=== PATIENT | female | born 1965 | race Caucasian/White ===

== ENCOUNTER → 2017-05-18 09:06 | Outpatient (CLI) | payer OTHER, SELFPAY ==
--- NOTE | 2017-05-18 09:09 | ECHOD_ITS ---
Reason For Study: Cardiomyopathy Procedure This was a 2D Doppler, Color Flow transthoracic echocardiogram. Techncially difficult study, multiple positions and breathing techniques were used. Exam performed in department. Left Ventricle Normal LV size. Left ventricular systolic function is lower limits of normal. The estimated ejection fraction is 53 %. No regional wall motion abnormalities noted. Right Ventricle Normal RV size. Normal systolic function. Atria Normal left atrium. Normal right atrium. Mitral Valve Normal mitral valve. Tricuspid Valve Normal tricuspid valve. Mild (1+) tricuspid valve insufficiency. Pulmonary artery systolic pressure is 26 mmHg. Aortic Valve Normal aortic valve. Trisinus/trileaflet aortic valve. Pulmonic Valve Normal pulmonic valve. Great Vessels Normal aortic root. The pulmonary artery is normal size. Normal inferior vena cava. Pericardium/Pleural No pericardial effusion. MMode/2D Measurements & Calculations LVIDd: 4.4 cm IVSd: 0.54 cm Ao root diam: 2.9 cm LVIDs: 2.9 cm LVPWd: 0.89 cm LA dimension: 2.6 cm FS: 33.2 % Time Measurements MV dec time: 0.42 sec Doppler Measurements & Calculations MV E max lesley: 57.6 cm/sec MV V2 max: 85.8 cm/sec MV P1/2t max lesley: 83.7 cm/sec MV A max lesley: 46.9 cm/sec MV max P.9 mmHg MV P1/2t: 67.1 msec MV E/A: 1.2 MV V2 mean: 44.4 cm/sec MV dec slope: 365.1 cm/sec2 MV mean P.92 mmHg MVA(P1/2t): 3.3 cm2 MV V2 VTI: 23.9 cm Ao V2 max: 103.0 cm/sec LV V1 max: 91.5 cm/sec PA V2 max: 76.0 cm/sec Ao max P.2 mmHg LV V1 max P.3 mmHg Ao V2 mean: 70.2 cm/sec LV V1 mean P.5 mmHg Ao mean P.2 mmHg LV V1 mean: 57.6 cm/sec Ao V2 VTI: 20.2 cm LV V1 VTI: 17.4 cm TR max lesley: 235.4 cm/sec TR max P.2 mmHg Interpretation Summary Normal LV size. Left ventricular systolic function is lower limits of normal. The estimated ejection fraction is 53 %. Structurally normal valves. Ordering Physician: Corry Arias Referring Physician: Corry Arias Performed By: Abiodun Moreno RCS
== END ==
PROVIDERS: Family Provider Nurse Practitioner; PCP Nurse Practitioner; Visit Provider Nurse Practitioner
DX: I42.8 Other cardiomyopathies (principal)
CPT/HCPCS: 93225; 93226; 93306

== ENCOUNTER → 2017-05-19 13:56 | Outpatient (CLI) | payer OTHER, SELFPAY ==
--- NOTE | 2017-05-20 05:56 | LEAS ---
Arterial Study - Arterial Study Arterial Study: Bilateral lower extremity ankle-brachial indices examination Patient complaint of left great toe pain and coldness Right lower extremity Right PT and DP ankle-brachial indices at rest are 1.13 and 1.14 with triphasic Doppler waveforms at both sites. Left lower extremity Left PT and DP ankle-brachial index at rest are 1.07 and 1.08 with triphasic Doppler waveforms Impression Normal bilateral lower extremity ankle-brachial indices Leonardo Ramos M.D., F.A.C.S.
== END ==
PROVIDERS: Family Provider Nurse Practitioner; PCP Nurse Practitioner; Visit Provider Internal Medicine Cardiovascular Disease
DX: I73.9 Peripheral vascular disease, unspecified (principal); M79.675 Pain in left toe(s)
CPT/HCPCS: 93922

== ENCOUNTER → 2017-07-21 15:52 | Outpatient (CLI) | payer OTHER, SELFPAY ==
--- NOTE | 2017-07-21 15:57 | BD_ITS ---
STUDY: DUAL ENERGY X-RAY ABSORPTIOMETRY / DXA REASON FOR EXAM: Female, 52 years old. The patient is postmenopausal. Loss of height. TECHNIQUE: Bone Mineral Density (BMD) measurements of lumbar spine and bilateral hips were obtained. COMPARISON: None. FINDINGS: Lumbar Spine (L1-L4): g/cm2 (1.349) / T-score (1.2) / Z-score (1.8) Findings are suggestive of normal bone density with a low fracture risk. Left Femur Total: g/cm2 (0.832) / T-score (-1.4) / Z-score (-0.9) Left Femoral Neck: g/cm2 (0.943) / T-score (-0.7) / Z-score (0.2) Right Femur Total: g/cm2 (0.886) / T-score (-1.0) / Z-score (0.4) Right Femoral Neck: g/cm2 (1.014) / T-score (0.2) / Z-score (0.7) BD/Dexa Bone Density Study IMPRESSION: The patient is considered osteopenic as outlined below according to World Claudio Organization (WHO) criteria with a moderate fracture risk. Reference Information: The T-score is the number of standard deviations above or below the standard which is normal for young adults at their peak bone mineral density. The World Health Organization (WHO) interprets the T-scores as follows: Above -1 Normal bone density Between -1 and -2.5 Osteopenia Equal to / or below -2.5 Osteoporosis As a practical clinical guideline, osteopenia may be graded as follows: Mild -1 through -1.5 Moderate -1.6 through -2.0 Severe -2.1 through -2.4 The Z-score is the number of standard deviations above or below age-matched controls. A Z-score of less than -1.5 would be considered abnormal. References: 1. NIH Osteoporosis and Related Bone Diseases http://www.osteo.org 2. International Society for Clinical Densitometry http://www.iscd.org 3. National Osteoporosis Foundation http://www.nof.org Electronically Signed: Robert Hugo MD at 15:50 EDT Tel [phone], Service support ,
--- NOTE | 2017-07-21 16:20 | RAD_ITS ---
STUDY: X-RAY - PELVIS AND BILATERAL HIPS REASON FOR EXAM: Female, 52 years old. Bilateral hip pain for a long time, no known injury TECHNIQUE: Radiological exam, hip, bilateral, with pelvis when performed; minimum of 5 views COMPARISON: None. FINDINGS: There is a non-specific bowel gas pattern. Normal visualized soft tissue structures. Normal bilateral iliac wings, sacroiliac joints and visualized sacrum. Benign bone sclerosis of the bilateral iliacs. Normal bilateral superior and inferior pubic rami. Normal pubic symphysis. Normal bilateral ischial tuberosities. Normal visualized right femoral head. Normal right acetabulum. Normal right hip joint. Normal visualized left femoral head. Normal left acetabulum. Normal left hip joint. RAD/Hips B/L min 2 views w/ Pelvis IMPRESSION: Normal x-ray examination of the pelvis and bilateral hips. Electronically Signed: Kat Bryant MD at 7:48 EDT , Service support ,
== END ==
PROVIDERS: Family Provider Nurse Practitioner; PCP Nurse Practitioner; Visit Provider Nurse Practitioner
DX: Z78.0 Asymptomatic menopausal state (principal); M85.80 Other specified disorders of bone density and structure, unspecified site; M25.552 Pain in left hip; M25.551 Pain in right hip
CPT/HCPCS: 73521; 77080

== ENCOUNTER → 2017-11-16 16:18 | Outpatient (CLI) | payer OTHER, SELFPAY ==
--- NOTE | 2017-11-16 16:26 | BI_ITS ---
MAMMOGRAPHY - BILATERAL SCREENING REASON FOR EXAM: Female, 52 years old. Routine annual screening examination. PERTINENT HISTORY: Mother with breast cancer. Aunt with breast cancer. TECHNIQUE: Digital bilateral breast rosemary (3D mammographic acquisition) in the CC and MLO projections. 2-D mediolateral oblique (MLO) and craniocaudad (CC) views of both breasts were obtained. CAD: Full Field Digital Mammography with Computer Added Detection was performed. COMPARISON: Comparison is made with prior examination dated August 20, 2016 and March 01, 2014. FINDINGS: Breast Composition: The breasts are heterogeneously dense, which may obscure small masses. There are no dominant masses or suspicious calcifications. No other significant abnormalities are identified. There has been no significant change since the prior study. BI/SCREENING MAMM (CAD), BILAT IMPRESSION: Stable bilateral screening mammogram. Yearly follow-up mammogram recommended. (A) ASSESSMENT CATEGORY: BIRADS Category 1: Negative. A letter regarding these results will be sent to the patient by the facility within 30 days. Approximately 10% of breast cancers are not detected by mammography. A normal mammogram should not delay biopsy of a clinically suspicious abnormality. [id number] Electronically Signed: Robert Hugo MD at 9:24 EDT Tel [phone], Service support ,
== END ==
PROVIDERS: Family Provider Nurse Practitioner; PCP Nurse Practitioner; Visit Provider Obstetrics & Gynecology
DX: Z12.31 Encounter for screening mammogram for malignant neoplasm of breast (principal)
CPT/HCPCS: 77063; 77067

== ENCOUNTER → 2020-07-02 16:32 | Outpatient (CLI) | payer OTHER, SELFPAY ==
--- NOTE | 2020-07-02 16:35 | RAD_ITS ---
STUDY: X-RAY - LEFT SHOULDER REASON FOR EXAM: Female, 54 years old. Atraumatic left shoulder pain. TECHNIQUE: 2 view(s) of the shoulder on 4 images. COMPARISON: None. FINDINGS: Mild arthrosis of the glenohumeral joint. Normal acromioclavicular joint. Normal acromion. Normal humeral head and visualized proximal humerus. The soft tissue structures are unremarkable. Normal visualized pulmonary apex. RAD/Shoulder min 2 Views IMPRESSION: Mild arthrosis of the glenohumeral joint. No other abnormality. Electronically Signed: Armando Samuels MD at 12:35 EDT , Service support ,
== END ==
PROVIDERS: PCP Nurse Practitioner; Referring Provider Nurse Practitioner; Visit Provider Nurse Practitioner
DX: M25.512 Pain in left shoulder (principal)
CPT/HCPCS: 73030

== ENCOUNTER 2020-07-03 13:04 | Outpatient (RCR) | payer OTHER, SELFPAY ==
[2020-07-03] MEDS: COVID-19 VACC, MRNA(PFIZER)/PF 30 MCG/0.3 ML SYRINGE IM (15:54)
[2020-07-24] MEDS: COVID-19 VACC, MRNA(PFIZER)/PF 30 MCG/0.3 ML SYRINGE IM (15:31)
== END 2020-09-25 23:59 ==
LOC: IMMUN 13:04
PROVIDERS: PCP Nurse Practitioner; Visit Provider Family Medicine
DX: Z23 Encounter for immunization (principal)
CPT/HCPCS: 0001A; 0002A; 91300

== ENCOUNTER 2020-07-19 06:57 | Outpatient (RCR) | payer OTHER, SELFPAY ==
[2020-07-17 10:46] VITALS: BMI 19.5
--- NOTE | 2020-07-19 08:02 | HP.PTEVAL_ITS ---
Patient's Visit Information FISH MAGDALENO is a 55 year old F referred to Physical Therapy by Dr. Darlene Reis DO with a diagnosis of L shoulder bursitis. Date of Evaluation: 07/19/20 Physical Therapist: Alirio Gambino DPT - Visit Plan Frequency: 1x/Week Duration: 4 Weeks Plan: Start with progressing flexion ROM with shoulder pass throughs. Progress shoulder ER and scapular strengthening. May use modalities if needed. Pt. to take her HEP today and work on it for a few weeks. Pt. to follow up with PT in a few weeks or sooner if needed. - Subjective Pt. is here today for her initial evaluation with diagnosis of L shoulder burs itis. Pain has been going on for about a month or so. No mech of injury. Pain with sleeping, reaching behind her back. Decreases pain: naproxen gunjan reduced and icing. No N/T. - Pain L shoulder Pain Intensity (Out of 10): 1 Pain Intensity Range: 0, 5 - Objective POSTURE: Pt. has slight forward head, normal shoulder heights. PALPATION: tender at lateral subacromial space. no pain with deltoid. NEURO: Pt. has normal sensation and normal DTR of BUEs. ROM: Pt. has pretty good ROM of L shou lder. Full flexion (slight pain at end range), full abduction (slight pain at end range), functional ER normal (mild increase NW), functional IR loss L5 increase NW. Pt. has slight pain with end range over pressures in all directions. MMT: Pt. overall has pretty good shoulder strength. L shoulder- flexion 5/5, abd 5-/5 mild increase NW, ext 5/5, ER 5-/5, IR 5/5. - Special Tests L Shoulder Drop Sign - IS Test: Negative L Shoulder Empty Can - SS: Negative L Shoulder Belly Press - SupScap: Negative L Shoulder Neer - Impingement: Positive L Shoulder Young Jerardo - Impingement: Positive L Shoulder Biceps Load Test - Labrum: Negative L Shoulder Yeargasons - SLAP: Negative L Shoulder Speeds Test - Labrum/Biceps: Negative L Shoulder Shrug Sign - OA/Adhesive Capsulitis: Negative - Goals Goal 1:: LTG: Pt. to be I with HEP. Goal Time Frame: 4-6 Weeks Goal 2:: STG: Pt. to sleep throughout the night without increase in symptoms. Goal Time Frame: 2-4 Weeks Goal 3:: LTG: Pt. to have no pain with all functional mobilities and recreational activities. Goal Time Frame: 4-6 Weeks Goal 4:: LTG: Pt. to have increased shoulder strength to 5/5 throughout. Goal Time Frame: 4-6 Weeks - Rehabilitation Potential Physical Therapy Diagnosis: Pt. has signs and symptoms consistent with L shoulder bursitis. Pt. has overall pretty good ROM, except with functional IR. She has pain with end ranges of motions. No signs of tearing noted. Pt. would benefit from PT to restore full motion, work on ER strenthening and scapular strengthening to decrease forward shoulder positioning. Modalities may be indicated to reduce initial inflammation. Rehabilitation Potential: Excellent - Anticipated Interventions Patient/Client Instruction: Educate patient on: Condition, Plan of Care, Risk Factors, Benefits of Fitness Program For the Purpose of:: To improve decision making, To facilitate caregiver knowledge, To improve self management, To prevent re-injury, To improve ability to perform tasks related to life management, To improve tolerance to ADL's Therapeutic Exercise to Include: Strength training, Power training, Postural training, Flexibilty training, Passive ROM, Active ROM, Scapular Strength/St abilization For the Purpose of:: To decrease pain, To increase ROM, To increase oxygenation perfusion, To improve muscle performance and motor function, To improve ability to perform ADL's Manual Therapy Techniques to Include: Mobilization For the Purpose of:: To decrease pain, To decrease swelling/inflammation, To increase ROM Cryotherapy (ice pack, ice massage): Yes Ultrasound (thermal/non thermal): Yes For the Purpose of:: To decrease pain, To decrease swelling/inflammation, To increase ROM Thank you for the opportunity to evaluate your patient. For Medicare and Medicare HMO plans, please review the plan of care and approve it. It will need to be FAXED BACK to us at [phone] for Medicare purposes. For Medicare only, by signing this I certify the plan of care. Please let me know if there are questions or concerns regarding this plan of care. Physician Signature: Date:
== END 2020-07-19 19:00 | disposition home or self-care (01) ==
LOC: PT 06:57
PROVIDERS: PCP Nurse Practitioner; Referring Provider Orthopaedic Surgery; Visit Provider Orthopaedic Surgery
DX: M75.52 Bursitis of left shoulder (principal)
CPT/HCPCS: 97110; 97161

== ENCOUNTER → 2020-09-11 07:35 | Outpatient (CLI) | payer OTHER, SELFPAY ==
[2020-08-27 08:27] VITALS: BMI 19.5
--- NOTE | 2020-09-11 07:38 | BI_ITS ---
MAMMOGRAPHY - BILATERAL SCREENING REASON FOR EXAM: Female, 55 years old. Routine annual screening examination. PERTINENT HISTORY: Mother with breast cancer. Aunt with breast cancer. TECHNIQUE: Digital bilateral breast christina (3D mammographic acquisition) in the CC and MLO projections. 2-D mediolateral oblique (MLO) and craniocaudad (CC) views of both breasts were obtained. CAD: Full Field Digital Mammography with Computer Added Detection was performed. COMPARISON: Comparison is made with prior study dated 11/16/2017 and 08/20/2016. FINDINGS: Breast Composition: The breasts are heterogeneously dense, which may obscure small masses. There are no dominant masses or suspicious calcifications. No other significant abnormalities are identified. There has been no significant change since the prior study. BI/SCRN MAMM (CAD)W/CHRISTINA BILAT IMPRESSION: Stable bilateral screening mammogram. Yearly follow-up mammogram recommended. (A) ASSESSMENT CATEGORY: BIRADS Category 1: Negative. A letter regarding these results will be sent to the patient by the facility within 30 days. Approximately 10% of breast cancers are not detected by mammography. A normal mammogram should not delay biopsy of a clinically suspicious abnormality. [id number] Electronically Signed: Robert Hugo MD at 8:25 EDT , Service support ,
== END ==
PROVIDERS: PCP Nurse Practitioner; Referring Provider Obstetrics & Gynecology; Visit Provider Obstetrics & Gynecology
DX: Z12.31 Encounter for screening mammogram for malignant neoplasm of breast (principal)
CPT/HCPCS: 77063; 77067

== ENCOUNTER 2021-04-12 12:42 | Emergency (ER) | payer OTHER, SELFPAY ==
[2021-04-12 12:43] VITALS: BP 134/60; PULSE 72; RESP 18; TEMP 36.4; O2SAT 100; BMI 20.3
--- NOTE | 2021-04-12 13:15 | RAD_ITS ---
EXAM: XR RIGHT FOOT COMPLETE, 3 OR MORE VIEWS : 1965 CLINICAL INDICATION: trauma TECHNIQUE: Frontal, lateral and oblique views of the right foot. This report was created using [employer] report generation technology. COMPARISON: None. FINDINGS: BONES/JOINTS: Unremarkable. No acute fracture. No subluxation. Normal alignment. Preservation of the joint space. No sclerotic or destructive changes observed. SOFT TISSUES: Unremarkable. No soft tissue swelling or gas. No radiopaque foreign body. RAD/Foot min 3 Views IMPRESSION: No acute abnormality. at 1351 Reported and signed by: Bassam Leung MD Electronically Signed: Bassam Leung MD at 13:50 EST Tel , Service support ,
--- NOTE | 2021-04-12 13:25 | EDS_ITS ---
HPI History of Present Illness Chief Complaint: Lower Extremity Injury Informant: patient Narrative Narrative: Patient has pain in her right lateral foot area. She was hit by one of her dogs running. She felt a pop. She has pain in that area. It is worse with weightbearing and better with rest. No other injury or pain. [facility] Medical History Arthritis Home Medications cholecalciferol (vitamin D3) 25 mcg (1,000 unit) capsule 25 mcg PO DAILY 07/17/20 [History Last Taken Unknown] joint supplement PO 07/17/20 [History Last Taken Unknown] naproxen 500 mg tablet 500 mg PO BID 07/17/20 [History Last Taken Unknown] phytonadione (vitamin K1) 5 mg tablet 5 mg PO DAILY 07/17/20 [History Last Taken Unknown] meloxicam 15 mg tablet 15 mg PO DAILY #30 tab 03/27/21 [Rx Last Taken Unknown] Allergy/AdvReac Type Severity Reaction Status Date / Time Penicillins Allergy Hives, Verified 04/12/21 12:46 vomiting Family History Mother Heart disease Cancer Arthritis Father Diabetes Surgical History History of cervical discectomy History of tonsillectomy Social History household members: spouse housing: house Smoking Status: Never smoker alcohol intake: current alcohol intake frequency: a few times a week what type of physical activity do you participate in: walking, bicycling, yoga and additional details: Peloton bike, hike do you feel safe at home: Yes ROS ROS ED Musculoskeletal Musculoskeletal: Reports other Details: See history of present illness. ; Denies back pain or neck pain Integumentary Denies Abrasions or rash Neurologic Neurologic: Denies paresthesias or weakness Hematologic/Lymphatic Hematologic/Lymphatic: Denies easy bleeding or easy bruising EXAM Physical Exam Const Vital Signs: 04/12/21 12:43 Temperature 97.6 F L Temperature Source Temporal Pulse Rate 72 Respiratory Rate 18 Blood Pressure 134/60 H Blood Pressure Mean 84 Pulse Ox 100 Oxygen Delivery Method Room Air Positive well nourished and well developed General Appearance ED: well developed HEENT normocephalic and atraumatic Resp normal respiratory effort Extremity Extremity Narrative: There is a small contusion over the right lateral midfoot area. It is slightly above the typical fifth metatarsal area. There is minimal swelling. No deformity. No tenderness at the calcaneus, ankle or higher up in the leg all the way through the knee. Neuro moves all extremities and no sensory deficits noted Sensorium / Orientation: alert Skin Skin Narrative: Mild contusion as above. Rashes: no rashes MDM MDM MDM Narrative Medical decision making narrative: Three-view x-ray of the foot looked at by me and read by radiology shows no sign of acute fracture. Patient will use ice rest. If it still hurting in 1 to 2 weeks that should be carol-rayed. She has crutches already. Radiography Diagnostic Testing: Clinical Impression(s) from Imaging Studies Foot X-Ray 04/12/21 13:15 IMPRESSION: No acute abnormality. at 1351 Reported and signed by: Bassam Leung MD Electronically Signed: Bassam Leung MD at 13:50 EST Tel , Service support , Discharge Plan Triage Chief Complaint: Lower Extremity Injury ED Provider: Syed Cooper Dx/Rx/DC Orders Clinical Impression: Right foot strain Instructions: ED Foot Contusion, ED Foot Sprain Prescriptions: No Action naproxen 500 mg tablet 500 mg PO BID RF: 0 cholecalciferol (vitamin D3) 25 mcg (1,000 unit) capsule 25 mcg PO DAILY RF: 0 phytonadione (vitamin K1) 5 mg tablet 5 mg PO DAILY RF: 0 joint supplement PO RF: 0 meloxicam 15 mg tablet 15 mg PO DAILY Qty: 30 RF: 0 Primary Care Provider: Corry Arias NP Referrals: Corry Arias NP, MARKETING SUPPORT ASSISTANT-C [Primary Care Provider] - 1-2 Weeks Disposition Disposition: Home, Self Care
[2021-04-12 15:14] VITALS: PULSE 76; RESP 18; O2SAT 99
== END 2021-04-12 15:15 | disposition home or self-care (01) ==
PROVIDERS: Emergency Provider Emergency Medicine; PCP Nurse Practitioner
DX: S96.911A Strain of unspecified muscle and tendon at ankle and foot level, right foot, initial encounter (principal); S90.31XA Contusion of right foot, initial encounter; W54.1XXA Struck by dog, initial encounter; Y93.9 Activity, unspecified; Y92.9 Unspecified place or not applicable; Y99.9 Unspecified external cause status; M19.90 Unspecified osteoarthritis, unspecified site
CPT/HCPCS: 73630; 99282

== ENCOUNTER → 2021-10-23 | Outpatient (CLI) | payer BC, SELFPAY ==
--- NOTE | 2021-10-23 17:20 | MRI_ITS ---
STUDY: MRI LEFT SHOULDER REASON FOR EXAM: Left shoulder pain for one year, no specific injury. TECHNIQUE: Standardized fat and water weighted pulse sequences were obtained in all 3 orthogonal planes. COMPARISON: Radiographs 07/02/2020. FINDINGS: There is mild supraspinatus tendinosis and a small intermediate grade partial-thickness tear of the bursal surface of the distal supraspinatus tendon with mild delamination (T2 coronal image 8; proton-density coronal image 8). Normal infraspinatus tendon. Normal subscapularis tendon. Normal teres minor tendon. Normal supraspinatus muscle. Normal infraspinatus muscle. Normal subscapularis muscle. Normal teres minor muscle. Normal glenohumeral articulation. There is a very mild cystic change of the posterior aspect of the greater tuberosity. Normal biceps labral complex. Normal intracapsular long biceps tendon. Normal labrum. Normal capsulo- ligamentous complex. There is mild acromioclavicular arthrosis without substantial undersurface osteophytes (T2 sagittal image 12). There is a Type II morphology (curved), with a neutral orientation. There is a small volume of subacromial-subdeltoid bursal fluid (T2 coronal images 8-15). Normal visualized coracohumeral and coracoacromial ligaments. Normal deltoid muscle. Normal trapezius muscle. MRI/Upper Ext Joint Only(Routine) IMPRESSION: Small partial-thickness tear and mild tendinosis of the supraspinatus tendon. Mild acromioclavicular arthrosis. Mild subacromial-subdeltoid bursitis. Electronically Signed: Polo Boles MD at 9:52 EDT ,
== END | disposition home or self-care (01) ==
PROVIDERS: PCP Nurse Practitioner; Visit Provider Physician Assistant
DX: S46.812A Strain of other muscles, fascia and tendons at shoulder and upper arm level, left arm, initial encounter (principal); X58.XXXA Exposure to other specified factors, initial encounter; M19.012 Primary osteoarthritis, left shoulder; M75.52 Bursitis of left shoulder
CPT/HCPCS: 73221

== ENCOUNTER 2021-12-09 08:00 | Outpatient (RCR) | payer BC, SELFPAY ==
--- NOTE | 2021-11-13 08:02 | HP.PTEVAL ---
Patient's Visit Information FISH MAGDALENO is a 56 year old F referred to Physical Therapy by Dr. Brian Aviles DO with a diagnosis of Left Shoulder Bursitits. Date of Evaluation: 11/13/21 Physical Therapist: Nisreen Rich DPT - Visit Plan Frequency: 2-3x /Week Duration: 4 Weeks Plan: Focus on scapular strength/stabilization - Subjective Left Shoulder Pain- Patient reports that she has had 4 cortisone injections- a couple of years ago jammed falling on ice and that's the only thing she can remember. She also sleeps on that side and it bothers her in the morning. After the 3rd they did an MRI which showed bursitis, mild OA, possible labral shredding and a possible RTC tear. suggested PT- she was evaluated and given a HEP. He wants her to do intense PT to avoid surgery. Right hand dominate. Pain is located right inside the joint- Occasionally she has pain that radiates but not past the elbow. Mild N/T in the AM- She has 2 artificial cervical discs 6-7 years ago (C4-5). She had a cortisone injection in her shoulder 10 days ago. 2 days ago she had a Booster in the left UE- played golf on Thursday. She reports more tired and achy. Worst: since the injection 05/30 prior: 5-09/27. No extreme but she can't get away from it. Agg: putting on coats, reaching behind her back, lifting her arm to look at her watch. Eases: ice and Aleve. Best: 0/10- with limited activity and at the end of the day. No LUNA, blurred vision, dizziness or LUNA. Does notice decreased freezing room worker strength. Had had x-rays and MRI. 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 She Golf's (2-4x a week- at the [employer]) and Bikes (e-bike). PMHx/Meds: see ortho note - Objective Posture: FH, RS can correct but does not maintain. Gait: no deviation noted good arm swing and trunk rotation- no guarding of the left UE. Palpation: not tender to touch. ROM: WFL in all planes of the cervical and UE. Does have pain with end range ER and IR behind the back. Strength: Scap: fair minus mild winging. Shoulder: 4+/5 with discomfort IE/ER test. Elbow: 5/5, Wrist: 5/5 Manager Surgery: 60 bilateral. - Special Tests L Shoulder Empty Can - SS: Positive L Shoulder Belly Press - SupScap: Positive L Shoulder Neer - Impingement: Positive L Shoulder Young Jerardo - Impingement: Positive - Balance/Special Test Scores Quick DASH Score: 6.8175 - Goals Goal 1:: Patient will be I with HEP and progression Goal Time Frame: 4-6 Weeks Goal 2:: Patient will maintain proper posture t/o tx session to demo increased scap s/s Goal Time Frame: 4-6 Weeks Goal 3:: Patient will report 80% improvement Goal Time Frame: 4-6 Weeks - Rehabilitation Potential Physical Therapy Diagnosis: Patient presents with hypomobility- she has decreased pain free ROM, UE and scapular s/s and muscular endurance leading to poor posture and increased pain with ADL's. Rehabilitation Potential: Good - Anticipated Interventions Patient/Client Instruction: Educate patient on: Benefits of Fitness Program Therapeutic Exercise to Include: Strength training, Endurance training, Balance training, Coordination, Agility training, Body mechanics, Postural training, Flexibilty training, Neuromotor development, Dynamic Lumbar Stabilization, Terell Exercises For the Purpose of:: To improve muscle performance and motor function TENS: Yes Cryotherapy (ice pack, ice massage): Yes Thermo therapy (hot pack): Yes Ultrasound (thermal/non thermal): Yes Thank you for the opportunity to evaluate your patient. For Medicare and Medicare HMO plans, please review the plan of care and approve it. It will need to be FAXED BACK to us at [phone] for Medicare purposes. For Medicare only, by signing this I certify the plan of care. Please let me know if there are questions or concerns regarding this plan of care. Physician Signature: Date:
--- NOTE | 2021-12-09 08:45 | HP.PTDCSUM ---
It has been my pleasure to treat FISH MAGDALENO referred by Dr. Brian Aviles DO, with the diagnosis of Left Shoulder Bursitits for a total of 10 visit(s). Discharge Date: Please see the following information for a summary of their discharge status. Subjective: Patient reports she is doing great- feels fully confident with the exercises. % Improvement: 90 Objective/Function: Posture: good throughout. Gait: no deviation noted good arm swing and trunk rotation- no guarding of the left UE. Palpation: not tender to touch. ROM: WFL in all planes of the cervical and UE Strength: Scap: fair plus Shoulder: 5/5 with Elbow: 5/5, Wrist: 5/5 Mattress Finisher: 60 bilateral. Goal 1:: Patient will be I with HEP and progression Goal Progress: Goal Met Goal 2:: Patient will maintain proper posture t/o tx session to demo increased scap s/s Goal Progress: Goal Met Goal 3:: Patient will report 80% improvement Goal Progress: Goal Met Plan: 12/09: Discharge to HEP- encouraged to call if questions. Focus on scapular strength/stabilization If there are questions or concerns regarding this patient's physical therapy, please feel free to call me at [phone]. Thank you for the referral of this patient. Sincerely, Nisreen Rich, ELSAT Balance/Gait/Functional tests - Balance/Special Test Scores Quick DASH Score: 2.2726
== END 2021-12-09 14:42 | disposition home or self-care (01) ==
LOC: PT 08:00
PROVIDERS: PCP Nurse Practitioner; Referring Provider Orthopaedic Surgery; Visit Provider Orthopaedic Surgery
DX: M75.52 Bursitis of left shoulder (principal)
CPT/HCPCS: 97110; 97162; 97164

== ENCOUNTER 2021-12-22 00:08 | Emergency (ER) | payer BC, SELFPAY ==
[2021-12-22 00:09] VITALS: BP 160/81; PULSE 85; RESP 14; TEMP 36.3; O2SAT 100; BMI 21.4
--- NOTE | 2021-12-22 00:27 | EDS_ITS ---
HPI History of Present Illness Chief Complaint: Laceration Narrative Narrative: Patient is a 56-year-old female with past medical history of of left shoulder impingement syndrome. She states that this evening after getting her 95-year-old father back into the house she was closing the garage door and tried to jump over the sensor. She states when she did this she struck the back left side of her head on the garage door. She denies any loss of consciousness history of bleeding disorder or blood thinner use. She states she sustained a laceration to her head and has concerned it may need closed and secondary to this comes in for evaluation. Patient denies any headache change in vision nausea or vomiting. She states her tetanus status is up-to-date [facility] Medical History Arthritis Home Medications cholecalciferol (vitamin D3) 25 mcg (1,000 unit) capsule 25 mcg PO DAILY 07/17/20 [History Last Taken Unknown] joint supplement PO 07/17/20 [History Last Taken Unknown] naproxen 500 mg tablet 500 mg PO BID 07/17/20 [History Last Taken Unknown] phytonadione (vitamin K1) 5 mg tablet 5 mg PO DAILY 07/17/20 [History Last Taken Unknown] amitriptyline 50 mg tablet 50 mg PO 10/09/21 [History Last Taken Unknown] magnesium chloride 64 mg (magnesium chloride) tablet mg PO 10/09/21 [History Last Taken Unknown] etodolac 500 mg tablet 500 mg PO BID #60 tabs 11/01/21 [Rx Last Taken Unknown] Allergy/AdvReac Type Severity Reaction Status Date / Time Penicillins Allergy Hives, Verified 12/22/21 00:09 vomiting Family History Mother Heart disease Cancer Arthritis Father Diabetes Surgical History History of cervical discectomy History of tonsillectomy Social History household members: spouse housing: house Smoking Status: Never smoker alcohol intake: current alcohol intake frequency: a few times a week what type of physical activity do you participate in: walking, bicycling, yoga and additional details: Dennis karimi, christianne do you feel safe at home: Yes ROS ROS ED Constitutional Constitutional ED: Denies chills or fever(s) Eyes Eyes: Denies blurry vision or change in vision ENT ENT ED: Denies sore throat Cardiovascular Cardiovascular: Denies chest pain Respiratory/Chest Respiratory/Chest: Denies cough or dyspnea Gastrointestinal Gastrointestinal: Reports nausea; Denies abdominal pain, diarrhea or vomiting Genitourinary Genitourinary ED: Denies dysuria Musculoskeletal Musculoskeletal: Denies back pain, myalgias or neck pain Integumentary Reports other Details: Positive scalp laceration ; Denies rash Neurologic Neurologic: Denies headache(s) Hematologic/Lymphatic Hematologic/Lymphatic: Denies easy bleeding or easy bruising EXAM Physical Exam Const Vital Signs: 12/22/21 00:09 Temperature 97.4 F L Temperature Source Temporal Pulse Rate 85 Respiratory Rate 14 Blood Pressure 160/81 H Blood Pressure Mean 107 Pulse Ox 100 Oxygen Delivery Method Room Air Positive well nourished and well developed General Appearance ED: well developed HEENT HEENT Narrative: Patient has a 4 x 3 hematoma to the left occipital portion of her scalp. In the center there is a roughly 1.5 cm linear subcutaneous layer deep laceration with minimal ooze of blood and no foreign body. No signs of depressed or basilar skull fracture Eyes PERRL and EOMs intact bilaterally Neck supple Neck Narrative: No bony deformity or step-off of the cervical spine no midline pain on palpation Resp normal respiratory effort and clear to auscultation bilaterally Cardio regular rate and regular rhythm Extremity normal to inspection Neuro oriented x3 and CN's II-XII intact bilaterally Sensorium / Orientation: alert Psych mental status grossly normal Skin Skin Narrative: Scalp hematoma with small laceration as documented above MDM MDM MDM Narrative Medical decision making narrative: Patient presented to the ER with close head injury that is low mechanism of injury and GCS of 15 with no report of bleeding disorder or blood thinner use. Based on the patient having a 3 x 4 hematoma over the top the occiput we did discuss the possible head CT. Patient states she does not want this performed as my clinical suspicion for underlying head injury/brain trauma is low. Therefore at this time the wound was closed with genaro as documented below. Following this as patient is currently up-to-date on tetanus and has no other signs of trauma there is no need for further work-up and is otherwise safe for discharge Patient had the scalp wound cleaned with chlorhexidine. It was anesthetized with 6 mL of 1% lidocaine with epinephrine local fashion. Then 6 genaro were placed across the wound bring the edges together good approximation. Patient tolerated the procedure well without complication. Discharge Plan Triage Chief Complaint: Laceration ED Provider: Cisco Romeo Dx/Rx/DC Orders Clinical Impression: Closed head injury, Laceration of scalp, Hematoma of occipital region of scalp Instructions: ED Head Injury (Adult), ED Laceration: All Closures Prescriptions: No Action naproxen 500 mg tablet 500 mg PO BID cholecalciferol (vitamin D3) 25 mcg (1,000 unit) capsule 25 mcg PO DAILY phytonadione (vitamin K1) 5 mg tablet 5 mg PO DAILY joint supplement PO magnesium chloride 64 mg magnesium tablet PO amitriptyline 50 mg tablet 50 mg PO Label Comments: take 1 tablet by mouth at bedtime etodolac 500 mg tablet 500 mg PO BID Qty: 60 0RF Rx Instructions: Do not take in conjunction with other NSAIDs including naproxen. Tylenol is okay. Primary Care Provider: Corry Arias NP Referrals: Corry Arias NP, [employer] [Primary Care Provider] - Activity Restrictions/Additional Instructions: Please see your family doctor or return to the ER in 10 to 14 days for staple removal. If you develop intractable nausea and vomiting or family notices change in mental status please return to the hospital for repeat evaluation. Disposition Disposition: Home, Self Care
[2021-12-22] MEDS: Acetaminophen 500 MG Tablet 1000 MG PO (00:34)
[2021-12-22] MEDS: Lidocaine 2% /Epi 1:100 (20ml) 20 ML VIAL INFILT (00:35)
[2021-12-22 01:09] VITALS: BP 132/74; PULSE 74; RESP 17; TEMP 36.1; O2SAT 98
== END 2021-12-22 01:12 | disposition home or self-care (01) ==
PROVIDERS: Emergency Provider Emergency Medicine; PCP Nurse Practitioner; Visit Provider Emergency Medicine
DX: S01.01XA Laceration without foreign body of scalp, initial encounter (principal); W22.8XXA Striking against or struck by other objects, initial encounter
CPT/HCPCS: 12001; 99282

== ENCOUNTER 2022-02-12 16:30 | Outpatient (RCR) | payer BC, SELFPAY ==
--- NOTE | 2022-01-22 16:01 | HP.PTEVAL_ITS ---
Patient's Visit Information FISH MAGDALENO is a 56 year old F referred to Physical Therapy by Demetra López, [employer]ICE PRESIDENT [employer] with a diagnosis of LBP. Date of Evaluation: 01/22/22 Physical Therapist: Ross López, DPT, OCS, CSCS - Visit Plan Frequency: 2-3x /Week Duration: 4-6 Weeks Plan: 2-3x/week for 4-6 for. 1. ext bias L/S ROM exercises and mobs. 2. postural focus and core.LE strength to HEP including yoga flows when improved. 3. TENS and ice as needed. - Subjective L LBP, no injury that she knows of. Started a week ago Thursday and got sore and kept her up at night with pain. It felt like nerve pain. Started doing stretches and MH and ice, muscle relaxers and it got worse over that weekend. Was up for 3 nights straight. started radiating down L leg. Went to doctor and got antiinflammatory, got toradol shot. Also gabapentin. It has not gotten much better. Less intense at night but still up alot. Hurt when she gets up in the am but manageable. Evening is worse and hard to get comfortable. No history of LB problems. No new activities lately. Enjoys biking and got ebike. Exercise includes golfing and biking, walks a dog 3x/day. 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 - Pain L LBP Pain Intensity (Out of 10): 3 Pain Intensity Range: 8 - Objective Waks normal without increased pain and safely. Trasnfers bed and chair I. Posture is flat lordosis. Tender to touch L PA mobs, no soft tissue. L/S AROM ext mod limtied adn L pain, flexion L pain, SB are OK and normal. refelxes 2/3 patella adn achilles. Sensation WNL in LE. strength LE symmetrical and 4/5. - slump and SLR. repeated PPU NE. repeated DKC - Balance/Special Test Scores Oswestry Low Back Score: 15 - Goals Goal 1:: Pain 90% better adn 1/10 intermittently only Goal Time Frame: 4-6 Weeks Goal 2:: I appropriate HEP to minimize future problems Goal Time Frame: 4-6 Weeks Goal 3:: Golf without hesitation Goal Time Frame: 4-6 Weeks Goal 4:: Able to sleep without interruption Goal Time Frame: 4-6 Weeks Goal 5:: oswestry score 10 or better Goal Time Frame: 4-6 Weeks - Rehabilitation Potential Physical Therapy Diagnosis: LBP likely discal in nature Rehabilitation Potential: Fair - Anticipated Interventions Patient/Client Instruction: Educate patient on: Condition, Plan of Care For the Purpose of:: To decrease pain, To increase ROM, To improve muscle performance and motor function, To increase tolerance to activity/condition/position Therapeutic Exercise to Include: Strength training, Postural training, Flexibilty training, Dynamic Lumbar Stabilization, Terell Exercises For the Purpose of:: To decrease pain, To increase ROM, To improve muscle performance and motor function, To increase tolerance to activity/condition/position Manual Therapy Techniques to Include: Mobilization, Passive ROM For the Purpose of:: To decrease pain, To increase ROM, To improve muscle performance and motor function TENS: Yes Cryotherapy (ice pack, ice massage): Yes For the Purpose of:: To decrease pain, To increase ROM, To improve muscle performance and motor function Thank you for the opportunity to evaluate your patient. For Medicare and Medicare HMO plans, please review the plan of care and approve it. It will need to be FAXED BACK to us at [phone] for Medicare purposes. For Medicare only, by signing this I certify the plan of care. Please let me know if there are questions or concerns regarding this plan of care. Physician Signature: Date:
--- NOTE | 2022-02-12 16:38 | HP.PTDCSUM_ITS ---
It has been my pleasure to treat FISH MAGDALENO referred by Demetra López, ROTARY SCREEN PRINTING MACHINE OPERATOR- C, with the diagnosis of LBP for a total of 5 visit(s). Discharge Date: 02/12/22 Please see the following information for a summary of their discharge status. Subjective: Doing so much better. Did not need a treatment this weekend. No more pain meds for this. Still careful with what she does. limits sitting time and uses towel roll. No pain since over the weekend where she took a long bike ride on [place] bike ride. Was stiff in LB and painful gently after bobby. Gone with stretches. Sleeping OK. Golfed two weeks ago and just a little discomfort the next day. L LBP Pain Intensity (Out of 10): 2 % Improvement: 80 Objective/Function: Full aROM L/S without pain today, just some stiffness end range of ext and flexion. Moving well without hesitation or pain. Goal 1:: Pain 90% better adn 10 intermittently only Goal Progress: 80%, met Goal 2:: I appropriate HEP to minimize future problems Goal Progress: Goal Met Goal 3:: Golf without hesitation Goal Progress: Goal Met Goal 4:: Able to sleep without interruption Goal Progress: Goal Met Goal 5:: oswestry score 10 or better Goal Progress: Goal Met Plan: d/c to HEP If there are questions or concerns regarding this patient's physical therapy, please feel free to call me at [phone]. Thank you for the referral of this patient. Sincerely, Ross López, DPT, OCS, CSCS Balance/Gait/Functional tests - Balance/Special Test Scores Oswestry Low Back Score: 3
== END 2022-02-12 19:00 | disposition home or self-care (01) ==
LOC: PT 16:30
PROVIDERS: PCP Nurse Practitioner; Referring Provider Nurse Practitioner Family; Visit Provider Nurse Practitioner Family
DX: M54.42 Lumbago with sciatica, left side (principal)
CPT/HCPCS: 97110; 97161; 97164

== ENCOUNTER → 2022-10-14 | Outpatient (CLI) | payer BC, SELFPAY ==
--- NOTE | 2022-10-14 15:18 | BI_ITS ---
MAMMOGRAPHY - BILATERAL SCREENING REASON FOR EXAM: Female, 57 years old. Routine annual screening examination. PERTINENT HISTORY: Mother with breast cancer. Aunt with breast cancer. TECHNIQUE: Digital bilateral breast christina (3D mammographic acquisition) in the CC and MLO projections. 2-D mediolateral oblique (MLO) and craniocaudad (CC) views of both breasts were obtained. CAD: Full Field Digital Mammography with Computer Added Detection was performed. COMPARISON: Comparison is made with prior study September 11, 2020 and November 16, 2017. FINDINGS: Breast Composition: The breasts are heterogeneously dense, which may obscure small masses. There are no dominant masses or suspicious calcifications. No other significant abnormalities are identified. There has been no significant change since the prior study. BI/SCRN MAMM (CAD)W/CHRISTINA BILAT IMPRESSION: Stable bilateral screening mammogram. Yearly follow-up mammogram recommended. (A) ASSESSMENT CATEGORY: BIRADS Category 1: Negative. A letter regarding these results will be sent to the patient by the facility within 30 days. Approximately 10% of breast cancers are not detected by mammography. A normal mammogram should not delay biopsy of a clinically suspicious abnormality. [id number] Electronically Signed: Robert Hugo MD at 8:26 EDT ,
--- NOTE | 2022-10-14 15:30 | BD_ITS ---
STUDY: DUAL ENERGY X-RAY ABSORPTIOMETRY / DXA REASON FOR EXAM: Female, 57 years old. [id number] TECHNIQUE: Bone Mineral Density (BMD) measurements of lumbar spine and bilateral hips were obtained. COMPARISON: Comparison is made with prior study dated July 21, 2017. FINDINGS: Lumbar Spine (L1-L4): g/cm2 (1.176) / T-score (1.2) / Z-score (2.4) Findings are suggestive of normal bone density with a low fracture risk. Left Femur Total: g/cm2 (0.778) / T-score (-1.3) / Z-score (-0.5) Left Femoral Neck: g/cm2 (0.731) / T-score (-1.1) / Z-score (0.1) Right Femur Total: g/cm2 (0.812) / T-score (-1.1) / Z-score (-0.3) Right Femoral Neck: g/cm2 (0.798) / T-score (-0.5) / Z-score (0.7) The T-Scores on the most recent prior examination were: Lumbar Spine (L1-L4): There has been improvement of bone density since the previous examination. Left Femur Total: which represents an improvement of 0.9%. Right Femur Total: which represents a worsening of 1.4%. BD/Dexa Bone Density Study IMPRESSION: The patient is considered osteopenic as outlined below according to World Claudio Organization (WHO) criteria with a low fracture risk. There has been improvement of bone density since the previous examination. Reference Information: The T-score is the number of standard deviations above or below the standard which is normal for young adults at their peak bone mineral density. The World Health Organization (WHO) interprets the T-scores as follows: Above -1 Normal bone density Between -1 and -2.5 Osteopenia Equal to / or below -2.5 Osteoporosis As a practical clinical guideline, osteopenia may be graded as follows: Mild -1 through -1.5 Moderate -1.6 through -2.0 Severe -2.1 through -2.4 The Z-score is the number of standard deviations above or below age-matched controls. A Z-score of less than -1.5 would be considered abnormal. References: 1. NIH Osteoporosis and Related Bone Diseases www osteo.org 2. International Society for Clinical Densitometry www iscd.org 3. National Osteoporosis Foundation www nof.org Electronically Signed: Robert Hugo MD at 15:54 EDT ,
== END | disposition home or self-care (01) ==
PROVIDERS: PCP Nurse Practitioner Family; Referring Provider Nurse Practitioner Family; Visit Provider Nurse Practitioner Family
DX: Z12.31 Encounter for screening mammogram for malignant neoplasm of breast (principal); Z80.3 Family history of malignant neoplasm of breast; Z13.820 Encounter for screening for osteoporosis; Z78.0 Asymptomatic menopausal state
CPT/HCPCS: 77063; 77067; 77080

== ENCOUNTER 2023-04-07 10:00 | Outpatient (RCR) | payer BC, SELFPAY ==
--- NOTE | 2023-03-26 17:08 | HP.PTEVAL_ITS ---
Patient's Visit Information Visit Information Visit Information: FISH MAGDALENO is a 57 year old F referred to Physical Therapy by VICTORINO SchillingC with a diagnosis of RIGHT HIP PAIN. Date of Evaluation: 03/26/23 Physical Therapist: Juan Ward, PT, Cert MDT, OCS Visit Plan Frequency: 2x /Week Duration: 4 Weeks Plan: PT INTERVETIONS MANUAL THERAPY STM /STICK IT BAND,MODALTIES ,STRENGTHNEING EX'S RIGHT HIP ,FLEXABILITY AND FUNCTIONAL STRENGTHENING Subjective Subjective: This 57 y/o female presents to physical therapy with right hip pain. Patient has had pain ~ 2months without etiology. Patient had pain lateral hip described as ache with walking ,going up stairs panful. Patient also has burning pain. Seen [facility] x-[facility] -. Prescribed ant-inflammatory. Aggregating factors ,stairs ,incline and extended walking. Alleviating factors rest. Patient symptoms has no denies paresthesia/tingling-. Coughing/sneezing-. Bowel/bladder -.Sleeping at night. Patient condition affects QOL and function . Patient goals to decrease pain. Patient has h/o lumbar discectomy 2016 SOCIAL: VOCATION: [employer] Pain Right Hip: Pain Intensity (Out of 10): 3 Pain Intensity Range: 10 Objective Objective: POSTURE: WNL PALAPTION: tender IT band right NEURO: intact FLEXABLITY: IT BAND/hamstrings min tight LUMBAR ROM:: flexion ,WNL .extension WNL ,side glides WFL GAIT: reciprocal pattern MMT: 4/5 quads/hams ,( peak force) hip abduction 15 .4 Special Tests L/S Slump test left side: Negative L/S Slump test right side: Negative L/S Left Straight Leg Raise: Negative L/S Right Straight Leg Raise: Negative Lumbar Standing: Flexion - Mechanical Response: No effect Lumbar Standing: Flexion - Symptoms During Testing: No effect Lumbar Standing: Flexion - Symptoms After Testing: No effect Lumbar Standing: Extension - Mechanical Response: No effect Lumbar Standing: Extension - Symptoms During Testing: No effect Lumbar Standing: Extension - Symptoms After Testing: No effect Lumbar Standing: Right Side Glides - Mechanical Response: No effect Lumbar Standing: Right Side [place] - Symptoms During Testing: No effect Lumbar Standing: Right Side [place] - Symptoms After Testing: No effect Lumbar Standing: Left Side [place] - Mechanical Response: No effect Lumbar Standing: Left Side [place] - Symptoms During Testing: No effect Lumbar Standing: Left Side [place] - Symptoms After Testing: No effect Balance/Special Test Scores Lower Extremity Functional Score: 41 Goals Goal 1:: Patient to be I with for hips Goal Time Frame: 4-6 Weeks Goal 2:: Patient to demonstrate 75% improvement with less pain with gait Goal Time Frame: 4-6 Weeks Goal 3:: Patient bassem improve LFES score by 5 points to improve QOL and gait Goal Time Frame: 4-6 Weeks Goal 4:: Patient to improve strength of glut Medius by 10 # strength to improve gait Goal Time Frame: 4-6 Weeks Rehabilitation Potential Physical Therapy Diagnosis: This patient has right hip pain with weakness of glut Medius and tender IT band affects pain with walking ,inclines and stairs thus benefit from skilled PT Rehabilitation Potential: Good Anticipated Interventions Patient/Client Instruction: Educate patient on: Condition and Plan of Care For the Purpose of:: To decrease pain, To increase ROM, To improve muscle performance and motor function, To improve ability to perform ADL's, To increase tolerance to activity/condition/position, To improve ability of physical actions for home/community/work/leisure, To improve gait and locomotor functions, To improve health of tissue, To decrease soft tissue restriction, To increase flexibility/ROM, To improve balance, To reduce risk of recurrence and To improve tolerance to ADL's Therapeutic Exercise to Include: Strength training, Endurance training, Balance training, Flexibilty training, Gait and locomotor training and Active ROM Comment: QUDS/HAMS/HIP For the Purpose of:: To decrease pain, To increase ROM, To improve muscle performance and motor function, To improve ability to perform ADL's, To increase tolerance to activity/condition/position, To improve ability of physical actions for home/community/work/leisure, To improve health of tissue, To decrease soft tissue restriction, To increase flexibility/ROM, To improve endurance, To improve balance and To improve tolerance to ADL's Manual Therapy Techniques to Include: Mobilization and Soft tissue mobilization For the Purpose of:: To decrease pain, To decrease swelling/inflammation, To increase ROM, To improve health of tissue, To decrease soft tissue restriction and To increase flexibility/ROM Text: Thank you for the opportunity to evaluate your patient. For Medicare and Medicare HMO plans, please review the plan of care and approve it. It will need to be FAXED BACK to us at [phone] for Medicare purposes. For Medicare only, by signing this I certify the plan of care. Please let me know if there are questions or concerns regarding this plan of care. Physician Signature: Date:
--- NOTE | 2023-08-03 16:54 | HP.PT.NRP ---
Patient Information Patient Information: FISH MAGDALENO was seen in my office for initial evaluation on 03/26/23. The following Plan of Care was established for this patient: POC Established Initial Frequency: 2x /Week Initial Duration: 4 Weeks Anticipated Interventions Patient/Client Instruction: Educate patient on: Condition and Plan of Care For the Purpose of:: To decrease pain, To increase ROM, To improve muscle performance and motor function, To improve ability to perform ADL's, To increase tolerance to activity/condition/position, To improve ability of physical actions for home/community/work/leisure, To improve gait and locomotor functions, To improve health of tissue, To decrease soft tissue restriction, To increase flexibility/ROM, To improve balance, To reduce risk of recurrence and To improve tolerance to ADL's Therapeutic Exercise to Include: Strength training, Endurance training, Balance training, Flexibilty training, Gait and locomotor training and Active ROM For the Purpose of:: To decrease pain, To increase ROM, To improve muscle performance and motor function, To improve ability to perform ADL's, To increase tolerance to activity/condition/position, To improve ability of physical actions for home/community/work/leisure, To improve health of tissue, To decrease soft tissue restriction, To increase flexibility/ROM, To improve endurance, To improve balance and To improve tolerance to ADL's Manual Therapy Techniques to Include: Mobilization and Soft tissue mobilization For the Purpose of:: To decrease pain, To decrease swelling/inflammation, To increase ROM, To improve health of tissue, To decrease soft tissue restriction and To increase flexibility/ROM Last Seen Last Seen: This patient was last seen in our office . Pertinent comments regarding their Physical therapy will appear below: Patient seen for PT for hip pain eventually had MRI of lumbar see for results thus d/c At this point I will be discontinuing this patient from physical therapy. I would be happy to see this patient again in the future if found appropriate by the physician. Thank you! Juan Ward, PT, Cert MDT, OCS Balance/Gait/Functional tests Balance/Special Test Scores Lower Extremity Functional Score: 41
== END 2023-04-07 19:00 | disposition home or self-care (01) ==
LOC: PT 10:00
PROVIDERS: PCP Nurse Practitioner Family; Referring Provider Nurse Practitioner Family; Visit Provider Nurse Practitioner Family
DX: M25.551 Pain in right hip (principal)
CPT/HCPCS: 97110; 97161

== ENCOUNTER → 2023-06-08 | Outpatient (CLI) | payer BC, SELFPAY ==
--- NOTE | 2023-06-08 16:15 | MRI_ITS ---
STUDY: MRI LUMBAR SPINE WITHOUT CONTRAST REASON FOR EXAM: Female, 57 years old. lower back pain TECHNIQUE: Standardized fat and water weighted pulse sequences were obtained in the sagittal and axial planes. COMPARISON: Lumbar spine January 13, 2022 FINDINGS: T12-L1: Normal endplates. Normal disc height, hydration and morphology. Normal bilateral facet joints. Normal central canal and bilateral lateral recesses. Normal bilateral intervertebral neural foramina. Normal lumbar lordosis. There is no substantial scoliosis. Normal conus medullaris that terminates at T12-L1 L1-2: Normal endplates. Normal disc height, hydration and morphology. Normal bilateral facet joints. Normal central canal and bilateral lateral recesses. Normal bilateral intervertebral neural foramina. L2-3: Normal endplates. Narrowed disc space with desiccation of the disc and minor annular bulge.. Normal bilateral facet joints. Normal central canal and bilateral lateral recesses. Normal bilateral intervertebral neural foramina. L3-4: Narrowed disc space with desiccation of disc and mild annular bulge.. Facet arthropathy and thickening of ligamenta flava more pronounced on the left. Mild narrowing of the central canal. Normal bilateral lateral recesses.. Mild right neural foraminal stenosis and moderate narrowing on the left L4-5: Normal endplates. Normal disc height, desiccation and minor annular bulge with small left foraminal disc protrusion. Facet arthropathy and thickening of ligamenta flava. Normal central canal and bilateral lateral recesses. Moderate right neural foraminal stenosis and more severe narrowing on the left. L5-S1: Normal endplates. Normal disc height, hydration and morphology. Normal bilateral facet joints. Normal central canal and bilateral lateral recesses. There is a large perineural cyst in the right nerve root foramen and smaller one on the left.. 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 Normal visualized paraspinous soft tissue structures. No significant change since prior exam given inherent differences in imaging modalities MRI/Spine Lumbar (Routine) IMPRESSION: No acute fracture or other significant bony pathology Spondylosis and multilevel spinal stenosis secondary to disc disease and bony hypertrophy most severe at L4-5 worse on the left. Other findings as above Electronically Signed: Jerod Rudd MD at 16:21 EST Reading Location ID and State: [address] [place] [address] Tel , Service support ,
== END | disposition home or self-care (01) ==
PROVIDERS: PCP Nurse Practitioner Family; Referring Provider Nurse Practitioner Family; Visit Provider Nurse Practitioner Family
DX: M54.50 Low back pain, unspecified (principal)
CPT/HCPCS: 72148

== ENCOUNTER → 2023-11-19 | Outpatient (CLI) | payer BC, SELFPAY ==
--- NOTE | 2023-11-19 07:48 | BI_ITS ---
MAMMOGRAPHY - BILATERAL SCREENING REASON FOR EXAM: Female, 58 years old. Routine annual screening examination. PERTINENT HISTORY: Mother with breast cancer. Aunt with breast cancer. TECHNIQUE: Digital bilateral breast christina (3D mammographic acquisition) in the CC and MLO projections. 2-D mediolateral oblique (MLO) and craniocaudad (CC) views of both breasts were obtained. CAD: Full Field Digital Mammography with Computer Added Detection was performed. COMPARISON: Comparison is made with prior study dated October 14, 2022 and September 11, 2020. FINDINGS: Breast Composition: The breasts are heterogeneously dense, which may obscure small masses. There are no dominant masses or suspicious calcifications. No other significant abnormalities are identified. There has been no significant change since the prior study. BI/SCRN MAMM (CAD)W/CHRISTINA BILAT IMPRESSION: Stable bilateral screening mammogram. Yearly follow-up mammogram recommended. (A) ASSESSMENT CATEGORY: BIRADS Category 1: Negative. A letter regarding these results will be sent to the patient by the facility within 30 days. Approximately 10% of breast cancers are not detected by mammography. A normal mammogram should not delay biopsy of a clinically suspicious abnormality. [id number] Electronically Signed: Robert Hugo MD at 9:33 EDT ,
== END | disposition home or self-care (01) ==
PROVIDERS: PCP Nurse Practitioner Family; Referring Provider Nurse Practitioner Family; Visit Provider Nurse Practitioner Family
DX: Z12.31 Encounter for screening mammogram for malignant neoplasm of breast (principal); Z80.3 Family history of malignant neoplasm of breast
CPT/HCPCS: 77063; 77067

== ENCOUNTER → 2024-08-24 | Outpatient (CLI) | payer BC, SELFPAY ==
--- NOTE | 2024-08-24 13:29 | US_ITS ---
PROCEDURE: PELVIC W/ TRANSVAGINAL REASON FOR EXAM: RLQ PAIN. TRANSVAG WELL TECHNIQUE: Transabdominal and transvaginal pelvic ultrasound COMPARISON: None FINDINGS: This exam is markedly limited due to shadowing bowel gas and poor distention of the urinary bladder. Uterus: 7.2 x 3.2 x 4.2 cm for volume of 50.1 mL. Slightly heterogeneous appearance with scattered echogenic foci throughout. Nabothian cysts at the cervix. Endometrial Thickness: 0.3 cm The ovaries were not visualized on this exam. US/Pelvic w/ Transvaginal IMPRESSION: 1. Limited exam, with nonvisualization of the ovaries. 2. Slightly heterogeneous appearance of the uterus, without discrete lesion. Endometrial stripe measures 3 mm in thickness. Reading Location: [id number]
[2024-08-24 15:20] LABS: Mucous, Urine 0 SEEN /hpf (<or=2+); Red Blood Cells-Urine 0 SEEN /hpf (0-5); Squamous Epithelial Cells - UA 0 SEEN /hpf (5-10)
[2024-08-24 15:46] LABS: Color, Urine Straw (Yellow); Glucose, Dipstick Normal (Normal); Ketone-Dipstick Negative (Negative); Leukocyte Esterase-Dipstick 100 /ul (Negative); Nitrite-Dipstick Negative (Negative); Occult Blood-Urine Negative /ul (Negative); Protein-Dipstick Negative (Negative); Urine Bilirubin Dipstick Negative (Negative); Urine Clarity Clear (Clear); Urine Urobilinogen Normal (Normal)
[2024-08-24 16:08] LABS: Bacteria RARE /hpf (None Seen); White Blood Cells 0-5 SEEN /hpf (0-5)
== END | disposition home or self-care (01) ==
PROVIDERS: PCP Nurse Practitioner Family; Referring Provider Nurse Practitioner Family; Visit Provider Nurse Practitioner Family
DX: R10.2 Pelvic and perineal pain (principal); R10.31 Right lower quadrant pain
CPT/HCPCS: 76830; 76856; 81001